=== PATIENT | female | born 1970 | race Caucasian/White ===

== ENCOUNTER 2017-10-14 19:26 | Observation (INO) | payer MEDICAID, OTHER ==
[~2017-10-14] VITALS: Ht 172.7 cm; Wt 68.0 kg
[2017-10-14 21:52] LABS: Basophils # (auto) 0 uL; Eosinophils # (auto) 0 uL
[2017-10-14 21:54] LABS: Basophils % (auto) 0.4 % (0.0-2.0); Eosinophils % (auto) 0.4 % (0.0-7.0); Hematocrit 47.1 % (36.0-46.0); Hemoglobin 16.5 g/dL (12.2-16.2); Lymphocytes # (auto) 1.5 uL; Mean Corpuscular Hemoglobin 38.2 pg (28.0-32.0); Mean Corpuscular Volume 109.1 fL (80.0-100.0); Monocytes # (auto) 0.6 uL; Monocytes % (auto) 9.6 % (0.0-12.0); Neutrophils # (auto) 3.7 uL; Neutrophils % (auto) 63.6 % (37.0-80.0); Nucleated Red Blood Cells % 0.2 %; Platelet Count (auto) 324 10^3/uL (140-450); Red Blood Cells 4.32 10^6/uL (4.0-5.20); Red Cell Distribution Width 13.5 % (11.8-14.3); White Blood Cell 5.7 10^3/uL (4.4-10.8)
[2017-10-14 22:18] LABS: Albumin 4.3 g/dL (3.4-5.0); BUN/Creatinine Ratio 12.7; Calcium 8.8 mg/dL (8.5-10.1); Potassium 3.6 mmol/L (3.5-5.1)
[2017-10-14 22:26] LABS: Salicylate 3.9 mg/dL (2.8-20.0)
[2017-10-14 22:27] LABS: Acetaminophen < 2.0 ug/mL (10-30)
[2017-10-14 22:28] LABS: Bilirubin, Total 0.2 mg/dL (0.2-1.0); Total Protein 8.8 g/dL (6.4-8.2)
[2017-10-15] MEDS ORDERED: THIAMINE 100mg/ml INJ (200mg/2ml VIAL) IV ONE ×2 (02:30→03:45)
[2017-10-15] MEDS ORDERED: chlordiazePOXIDE HCL 25 MG CAP PO ONE (02:30)
[2017-10-15] MEDS ORDERED: THIAMINE INJ 100 MG, MULTIPLE VITAMIN 10 ML, FOLIC ACID 1 MG, MAGNESIUM SULF SDV 50% 8 ... IV STA ×5 (02:55)
[2017-10-15] MEDS ORDERED: MVI in SODIUM CHLORIDE 0.9% 1,010 ML IV ONE (03:44)
[2017-10-15 03:52] LABS: Urine Pregnacy Test Negative (Negative)
[2017-10-15 03:56] LABS: Amphetamine Screen, Urine NEGATIVE (NEGATIVE); Barbiturate Scree,Urine NEGATIVE (NEGATIVE); Benzodiazephine Screen, Urine NEGATIVE (NEGATIVE); Cannabinoid Screen, Urine NEGATIVE (NEGATIVE); Cocaine Screen, Urine NEGATIVE (NEGATIVE); Opiate Scree,Urine NEGATIVE (NEGATIVE); Phencyclidine Screen, Urine NEGATIVE (NEGATIVE)
[2017-10-15 04:02] LABS: Urine Bacteria FEW /hpf (None Seen); Urine Blood TRACE /uL (Negative); Urine Specific Gravity 1.006 (1.001-1.035); Urine WBC 3 /hpf (0 - 5)
[2017-10-15] MEDS ORDERED: ACETAMINOPHEN 500 MG TAB PO ONE (06:30)
[2017-10-15] MEDS ORDERED: cefTRIAXone 1GM/10ml IVPUSH 10 ML IV ONE (06:45)
[2017-10-15] MEDS ORDERED: LORazepam 0.5 MG TAB PO ONE (07:45)
[2017-10-15] MEDS ORDERED: LORazepam 0.5 MG TAB PO PRN (08:30)
[2017-10-15] MEDS ORDERED: MULTIPLE VITAMIN TAB PO SCH (10:00)
[2017-10-15] MEDS ORDERED: THIAMINE HCL 100 MG TAB PO SCH (10:00)
[2017-10-15] MEDS ORDERED: FOLIC ACID 1 MG TAB PO SCH (10:00)
[2017-10-15] MEDS ORDERED: THIAMINE INJ 100 MG, MULTIPLE VITAMIN 10 ML, FOLIC ACID 1 MG, MAGNESIUM SULF SDV 50% 8 ... IV SCH ×5 (12:00)
[2017-10-15] MEDS ORDERED: LORazepam 2MG/ML-1ML VIAL IM ONE (21:15)
[2017-10-17] MEDS: LORazepam 0.5 MG TAB PO PRN ×2 (02:00→21:35)
[2017-10-18 08:03] VITALS: BP 142/92
== END 2017-10-18 09:06 | disposition home or self-care (01) | DRG 756 ==
LOC: EDBD 19:26 → ER 19:26 → OVERFLOW 19:27 → ER 10-15 18:57
PROVIDERS: ADMIT Emergency Medicine; ATTEND Emergency Medicine
DX: R45.851 Suicidal ideations (principal); G92 Toxic encephalopathy; F10.129 Alcohol abuse with intoxication, unspecified; F32.9 Major depressive disorder, single episode, unspecified; F41.9 Anxiety disorder, unspecified; F33.1 Major depressive disorder, recurrent, moderate; F17.210 Nicotine dependence, cigarettes, uncomplicated
CPT/HCPCS: 36415; 71045; 80053; 80307; 80320; 80329; 81001; 81025; 85025; 96372; 96374; 96375; 99285; G0378; J0696; J2060; J3411; J3475; J7030

== ENCOUNTER 2019-01-25 17:44 | Emergency (ER) | payer MEDICAID, OTHER ==
[~2019-01-25] VITALS: Ht 162.6 cm; Wt 59.0 kg
[2019-01-25 19:25] LABS: Basophils # (auto) 0 uL; Eosinophils # (auto) 0 uL; Hemoglobin 15.9 g/dL (12.2-16.2); Monocytes # (auto) 0.7 uL; Nucleated Red Blood Cells % 0.1 %
[2019-01-25 19:27] LABS: Basophils % (auto) 0.2 % (0.0-2.0); Hematocrit 46.2 % (36.0-46.0); Lymphocytes # (auto) 0.5 uL; Lymphocytes % (auto) 6.3 % (10.0-50.0); Mean Corpuscular Hemoglobin 38.1 pg (28.0-32.0); Mean Corpuscular Hgb Conc. 34.4 g/dL (32.0-36.0); Mean Corpuscular Volume 110.9 fL (80.0-100.0); Monocytes % (auto) 9.5 % (0.0-12.0); Platelet Count (auto) 179 10^3/uL (140-450); Red Blood Cells 4.17 10^6/uL (4.0-5.20); Red Cell Distribution Width 13.2 % (11.8-14.3); White Blood Cell 7.2 10^3/uL (4.4-10.8)
[2019-01-25 19:43] LABS: Potassium 4.6 mmol/L (3.5-5.1)
[2019-01-25 19:48] LABS: Albumin 4.4 g/dL (3.4-5.0); BUN/Creatinine Ratio 20.7; Bilirubin, Total 1.4 mg/dL (0.2-1.0); Calcium 8.4 mg/dL (8.5-10.1); Total Protein 8.6 g/dL (6.4-8.2)
[2019-01-26 05:05] LABS: Urine Bacteria FEW /hpf (None Seen); Urine Blood 2+ /uL (Negative); Urine Hyaline Cast MANY /lpf (0 - 2); Urine Mucus FEW (None Seen); Urine Specific Gravity 1.017 (1.001-1.035); Urine WBC 3 /hpf (0 - 5)
[2019-01-26 05:21] LABS: Amphetamine Screen, Urine NEGATIVE (NEGATIVE); Barbiturate Scree,Urine NEGATIVE (NEGATIVE); Benzodiazephine Screen, Urine NEGATIVE (NEGATIVE); Cannabinoid Screen, Urine NEGATIVE (NEGATIVE); Cocaine Screen, Urine NEGATIVE (NEGATIVE); Opiate Scree,Urine NEGATIVE (NEGATIVE); Phencyclidine Screen, Urine NEGATIVE (NEGATIVE)
[2019-01-26] MEDS ORDERED: SODIUM CHLORIDE 0.9% 1,000 ML IV ONE (07:16)
[2019-01-26] MEDS ORDERED: LORazepam 2MG/ML-1ML VIAL IV ONE (07:30)
[2019-01-26] MEDS ORDERED: PANTOPRAZOLE 40 MG TAB PO ONE (07:30)
[2019-01-26] MEDS ORDERED: FOLIC ACID 1 MG, MULTIPLE VITAMIN 10 ML, MAGNESIUM SULF SDV 50% 8 MEQ, THIAMINE INJ 100... INJ SCH ×5 (12:00)
[2019-01-27] MEDS ORDERED: SODIUM CHLORIDE 0.9% 1,000 ML IV ONE (15:00)
[2019-01-27 15:33] LABS: Basophils # (auto) 0 uL; Basophils % (auto) 0.2 % (0.0-2.0); Eosinophils # (auto) 0 uL; Eosinophils % (auto) 0.5 % (0.0-7.0); Hemoglobin 12.9 g/dL (12.2-16.2); Lymphocytes # (auto) 0.4 uL; Monocytes # (auto) 0.5 uL; Neutrophils # (auto) 3.2 uL; Nucleated Red Blood Cells % 0.2 %; White Blood Cell 4.1 10^3/uL (4.4-10.8)
[2019-01-27 15:35] LABS: Hematocrit 36.3 % (36.0-46.0); Lymphocytes % (auto) 9.4 % (10.0-50.0); Mean Corpuscular Hemoglobin 37.9 pg (28.0-32.0); Mean Corpuscular Hgb Conc. 35.6 g/dL (32.0-36.0); Mean Corpuscular Volume 106.4 fL (80.0-100.0); Monocytes % (auto) 11.9 % (0.0-12.0); Platelet Count (auto) 87 10^3/uL (140-450); Red Blood Cells 3.41 10^6/uL (4.0-5.20); Red Cell Distribution Width 12.6 % (11.8-14.3)
[2019-01-27 15:41] LABS: Albumin 3.3 g/dL (3.4-5.0); Calcium 8.3 mg/dL (8.5-10.1); Potassium 3.8 mmol/L (3.5-5.1)
[2019-01-27 15:44] LABS: BUN/Creatinine Ratio 35.8; Bilirubin, Total 1.7 mg/dL (0.2-1.0); Total Protein 6.8 g/dL (6.4-8.2)
--- NOTE | 2019-01-28 13:49 | NUR ---
Called the following facilities: [facility] no beds [place] [facility] [place] no beds [facility] s[facility]w [facility] no beds but packet fax for transfer list [facility] s/w Terry packet fax for review [facility] packet fax for review
[2019-01-28 21:04] VITALS: BP 136/71
== END 2019-01-28 20:30 | disposition short-term general hospital (02) ==
LOC: EDBD 17:44 → ER 17:50
DX: F32.9 Major depressive disorder, single episode, unspecified (principal); F10.10 Alcohol abuse, uncomplicated; F41.9 Anxiety disorder, unspecified; R74.8 Abnormal levels of other serum enzymes; D75.89 Other specified diseases of blood and blood-forming organs; R41.82 Altered mental status, unspecified; F17.210 Nicotine dependence, cigarettes, uncomplicated
CPT/HCPCS: 36415; 71046; 80053; 80307; 80320; 81001; 83735; 84702; 85025; 93005; 96365; 96375; 99285; J2060; J3411; J3475; J7030; 96366